=== PATIENT | male | born 1935 | race Caucasian/White ===

== ENCOUNTER 2016-08-11 09:13 | Inpatient (IN) | payer MEDICARE ==
[~2016-08-11] VITALS: Ht 177.8 cm; Wt 56.2 kg
[2016-08-11] MEDS ORDERED: SALINE FLUSH 10 ML FLUSH PRN (11:05)
[2016-08-11] MEDS ORDERED: Furosemide 40 MG/4 ML VIAL ONE (11:21)
[2016-08-11] MEDS ORDERED: ASPIRIN 81 MG CHEW TAB ONE (13:31)
[2016-08-11] MEDS ORDERED: TRAMADOL 50 MG TAB PO PRN (14:55)
[2016-08-11] MEDS: Losartan 50 MG TAB PO SCH (15:01)
[2016-08-11] MEDS: EPLERONONE 25 MG PO SCH (15:01)
[2016-08-11 15:20] VITALS: BP_SYST 151; RESP 18; TEMP 97.7
[2016-08-11 15:22] VITALS: Ht 177.8 cm; Wt 56.2 kg
[2016-08-11] MEDS: CYANOCOBA 500 MCG TAB PO SCH (15:30)
[2016-08-11] MEDS: VITAMIN E 400 UNITS CAP PO SCH (15:30)
[2016-08-11] MEDS: CHOLECALCIFEROL 1,000 UNITS TAB PO SCH (15:30)
[2016-08-11 16:45] VITALS: RESP 14; RESP 16
[2016-08-11 19:46] VITALS: BP_SYST 130; RESP 16; TEMP 98.1
[2016-08-11] MEDS: Carvedilol 6.25 MG TAB PO SCH (20:30)
[2016-08-11] MEDS: SALINE FLUSH 10 ML FLUSH SCH (20:30)
[2016-08-11 23:32] VITALS: BP_SYST 133; RESP 16; TEMP 98
[2016-08-12 03:09] VITALS: BP_SYST 134; RESP 16; TEMP 97.9
[2016-08-12] MEDS: SODIUM CHLORIDE 0.9% FLUSH BAG 500 ML IV SCH ×2 (05:43→23:51)
[2016-08-12 07:00] VITALS: BP_SYST 148; RESP 18; TEMP 98.3
[2016-08-12] MEDS: Losartan 50 MG TAB PO SCH (08:58)
[2016-08-12] MEDS: CHOLECALCIFEROL 1,000 UNITS TAB PO SCH (09:00)
[2016-08-12] MEDS: VITAMIN E 400 UNITS CAP PO SCH (09:00)
[2016-08-12] MEDS: CYANOCOBA 500 MCG TAB PO SCH (09:00)
[2016-08-12] MEDS ORDERED: Furosemide 40 MG/4 ML VIAL IV SCH (09:00)
[2016-08-12] MEDS: SALINE FLUSH 10 ML FLUSH SCH ×2 (09:01→20:25)
[2016-08-12] MEDS: Rivaroxaban 15 MG TAB PO SCH (09:01)
[2016-08-12] MEDS: Carvedilol 6.25 MG TAB PO SCH ×2 (09:01→20:25)
[2016-08-12] MEDS: EPLERONONE 25 MG PO SCH (09:06)
[2016-08-12 11:00] VITALS: BP_SYST 116; RESP 18; TEMP 98.1
[2016-08-12] MEDS ORDERED: Furosemide 100 MG/10 ML VIAL IV ONE (12:10)
[2016-08-12 15:37] VITALS: BP_SYST 122; RESP 18; TEMP 98
[2016-08-12 19:27] VITALS: BP_SYST 120; RESP 18; TEMP 98.1
[2016-08-12 23:08] VITALS: BP_SYST 133; RESP 18; TEMP 98.5
[2016-08-13 03:31] VITALS: BP_SYST 135; RESP 18; TEMP 97.7
[2016-08-13 08:06] VITALS: BP_SYST 141; RESP 18; TEMP 97.5
[2016-08-13] MEDS: VITAMIN E 400 UNITS CAP PO SCH (09:00)
[2016-08-13] MEDS: CYANOCOBA 500 MCG TAB PO SCH (09:00)
[2016-08-13] MEDS: CHOLECALCIFEROL 1,000 UNITS TAB PO SCH (09:00)
[2016-08-13] MEDS: SALINE FLUSH 10 ML FLUSH SCH (09:19)
[2016-08-13] MEDS: Rivaroxaban 15 MG TAB PO SCH (09:19)
[2016-08-13] MEDS: EPLERONONE 25 MG PO SCH (09:19)
[2016-08-13] MEDS: Carvedilol 6.25 MG TAB PO SCH (09:19)
[2016-08-13] MEDS: Losartan 50 MG TAB PO SCH (09:20)
[2016-08-13 11:01] VITALS: BP_SYST 119; RESP 18; TEMP 98.1
[2016-08-13 11:08] VITALS: BP_SYST 119; RESP 18; TEMP 98.1
== END 2016-08-13 11:36 | disposition home health service (06) | DRG 292 ==
LOC: ENRESERVTM → ENRESERVDT → ER 09:13 → EMR 11:19 → ENPENDDIS 11:19 → 4THW 13:25
PROVIDERS: ADMIT Internal Medicine Cardiovascular Disease; ATTEND Internal Medicine Cardiovascular Disease
DX: I11.0 Hypertensive heart disease with heart failure (principal); I48.92 Unspecified atrial flutter; I42.0 Dilated cardiomyopathy; I48.2 Chronic atrial fibrillation; Z95.0 Presence of cardiac pacemaker; Z79.01 Long term (current) use of anticoagulants; E78.5 Hyperlipidemia, unspecified; M48.00 Spinal stenosis, site unspecified; I50.43 Acute on chronic combined systolic (congestive) and diastolic (congestive) heart failure
CPT/HCPCS: 36415; 71010; 80048; 80053; 80061; 80162; 82550; 82553; 83735; 83880; 84484; 85025; 85610; 85730; 93005; 93306; 94799; 96374